=== PATIENT | male | born 1990 | race Caucasian/White ===

== ENCOUNTER 2017-08-27 12:08 | Emergency (ER) | payer OTHER ==
--- NOTE | 2017-08-27 13:20 | EDPHY ---
H & P Time Seen by Provider: 08/27/17 12:12 HPI/ROS: CHIEF COMPLAINT: Carbon monoxide exposure HISTORY OF PRESENT ILLNESS: 26-year-old male presents to the emergency department with carbon monoxide exposure. The patient was at work and after few hours of working developed dizziness and headache and felt confused. He went outside and was feeling a bit better. There were 2 other coworkers had similar symptoms. He denies pain in his chest or difficulty breathing. He just quit smoking a few months ago. Denies abdominal pain. Denies neck or back pain. REVIEW OF SYSTEMS: Constitutional: No fever, no chills. Eyes: No double or blurry vision. ENT: No sore throat. Respiratory: No cough, no shortness of breath. Cardiac: No chest pain. Gastrointestinal: No abdominal pain, vomiting or diarrhea. Genitourinary: No dysuria. Musculoskeletal: No neck or back pain. Skin: No rashes. Neurological: headache. Past Medical/Surgical History: Former smoker Social History: Single Smoking Status: Never smoked Physical Exam: General Appearance: Alert, no distress. Eyes: Pupils equal and round. Extraocular motions are all intact. ENT: Mouth: Mucous membranes moist. Respiratory: No wheezing, rhonchi, or rales, lungs are clear to auscultation. Cardiovascular: Regular rate and rhythm. Gastrointestinal: Abdomen is soft and nontender, no masses, no rebound or guarding, bowel sounds normal. Neurological: Alert and oriented x 3, cranial nerves II through XII grossly intact Skin: Warm and dry, no rashes. Musculoskeletal: Nontender to palpate along the cervical, thoracic or lumbar spine. Neck is supple. Extremities: Full range of motion and no peripheral edema. Psychiatric: Patient is oriented X 3, there is no agitation. Constitutional: Initial Vital Signs Temperature (C) 36.5 C 08/27/17 12:12 Heart Rate 63 08/27/17 12:12 Respiratory Rate 17 08/27/17 12:12 Blood Pressure 126/78 H 08/27/17 12:12 O2 Sat (%) 96 08/27/17 12:12 O2 Delivery Mode Room Air Allergies/Adverse Reactions: No Known Allergies Allergy (Unverified 08/27/17 12:11) Home Medications: Medication Instructions Recorded Zoloft 100mg (*) 08/27/17 Medical Decision Making ED Course/Re-evaluation: 26-year-old male presents to the emergency department after possible CO exposure. The patient had carboxyhemoglobin level of 1.9. He is a former smoker from a few months ago. The patient's symptoms have completely resolved. He was treated with high-flow oxygen upon his arrival in the emergency department. He feels comfortable being discharged. The fire department has been called and is at their place of business. Differential Diagnosis: Including but not limited to CO exposure, electrolyte abnormality, migraine headache, tension headache and infectious causes such as meningitis, pharyngitis and sinusitis. - Data Points Laboratory Results: 08/27/17 12:33 Carboxyhemoglobin 1.9 % H % (0-1.5) Departure - Departure Disposition: Home, Routine, Self-Care Clinical Impression: Carbon monoxide exposure Condition: Good Instructions: Carbon Monoxide Poisoning (ED) Additional Instructions: Return to the emergency department if you have any other change in symptoms or if you feel worse in any way. Referrals: Glen Lawson MD [Medical Doctor] - 1 day, if not improved
[2017-08-27 13:40] VITALS: BP 115/80
== END 2017-08-27 13:39 | disposition home or self-care (01) ==
DX: T58.91XA Toxic effect of carbon monoxide from unspecified source, accidental (unintentional), initial encounter (principal); Z87.891 Personal history of nicotine dependence